=== PATIENT | male | born 1995 | race Two or more races ===

== ENCOUNTER 2022-01-26 01:39 | Emergency (ER) | payer SELFPAY ==
[~2022-01-26] VITALS: Ht 180.3 cm; Wt 108.0 kg
[2022-01-26 01:55] VITALS: BP 156/96
[2022-01-26 03:13] LABS: Urine Bacteria NONE SEEN /hpf (None Seen); Urine Blood Negative /uL (Negative); Urine Mucus FEW (None Seen); Urine Specific Gravity 1.016 (1.001-1.035); Urine WBC 4 /hpf (0 - 3)
[2022-01-26] MEDS ORDERED: CLIN-188 PO (04:29)
== END 2022-01-26 04:32 | disposition home or self-care (01) ==
LOC: ER 01:39
DX: L05.01 Pilonidal cyst with abscess (principal)
CPT/HCPCS: 10080; 81001

== ENCOUNTER 2022-01-27 11:46 | Emergency (ER) | payer SELFPAY ==
[~2022-01-27] VITALS: Ht 177.8 cm; Wt 109.0 kg
[~2022-01-27 11:46] MED LIST: CLIN-188 PO
[2022-01-27 16:22] VITALS: BP 145/89
== END 2022-01-27 16:39 | disposition home or self-care (01) ==
LOC: ER 11:46
DX: L05.01 Pilonidal cyst with abscess (principal); F17.210 Nicotine dependence, cigarettes, uncomplicated

== ENCOUNTER 2022-08-27 12:54 | Emergency (ER) | payer OTHER ==
[~2022-08-27] VITALS: Ht 177.8 cm; Wt 113.5 kg
[2022-08-27 13:15] VITALS: BP 164/99
[2022-08-27] MEDS ORDERED: IBUP800T27 PO (14:35)
== END 2022-08-27 14:45 | disposition home or self-care (01) ==
LOC: ER 12:54
DX: L05.91 Pilonidal cyst without abscess (principal)